=== PATIENT | female | born 1995 | race American Indian/Alaskan Native ===

== ENCOUNTER 2016-11-22 14:48 | Emergency (ER) | payer BC ==
[2016-11-22 15:50] VITALS: BP 114/62
[2016-11-22 16:45] LABS: Basophils % (Auto) 1.1 % (0.0-1.8); Eosinophils % (Auto) 1.8 % (0.0-4.3); Hematocrit 36.8 % (30.3-42.9); Hemoglobin 11.7 gm/dl (10.1-14.3); Mean Corpuscular HGB Conc 32 % (30-34); Mean Corpuscular Hemoglobin 29 pg (28-32); Mean Corpuscular Volume 89 fl (79-97); Platelet Count 293 K/mm3 (140-440); Red Blood Count 4.12 M/mm3 (3.65-5.03); Red Cell Distribution Width 15.5 % (13.2-15.2); White Blood Count 4.9 K/mm3 (4.5-11.0)
[2016-11-22 17:06] LABS: Alanine Aminotransferase 10 units/L (7-56); Albumin 4.2 g/dL (3.9-5); Albumin/Globulin Ratio 1.3 %; Alkaline Phosphatase 46 units/L (35-129); Anion Gap 15 mmol/L; Blood Urea Nitrogen 7 mg/dL (7-17); Carbon Dioxide 24 mmol/L (22-30); Chloride 107.6 mmol/L (98-107); Glucose 84 mg/dL (65-100); Lipase 18 units/L (13-60); Potassium 3.7 mmol/L (3.6-5.0); Sodium 143 mmol/L (137-145); Total Protein 7.4 g/dL (6.3-8.2)
--- NOTE | 2016-11-22 17:12 | Emergency Department Report ---
Chief Complaint: Abdominal Pain Stated Complaint: ABD PAIN, VOMITING Time Seen by Provider: 11/22/16 17:11 - HPI History of Present Illness: Patient here complaining of left lower abdominal pain that is 8 out of 10 and feels sharp. She said this has been going on for 3 days. Last menstrual period was 10/28/2016. Denies any urinary burning frequency or urgency. Denies any fever or chills. 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 Denies taking any [id number] medication for pain. Nothing make pain better or worse. Pain is constant per patient. Denies any nausea or vomiting. - ROS Review of Systems: All systems are negative unless stated in HPI above - Exam Vital Signs: Vital Signs 11/22/16 15:46 Temperature 98.2 F Pulse Rate 73 Respiratory 18 Rate Blood Pressure 114/62 O2 Sat by Pulse 100 Oximetry Physical Exam: Gen.: This is a 21-year-old female well-nourished well-developed in no acute distress and nontoxic in appearance Abdomen: Soft, tender to palpate to left pelvic area without any guarding or rebound tenderness. Normal bowel sounds in all quadrants and no peritoneal signs. Negative CVA tenderness bilaterally MSE screening note: Focused history and physical exam performed. Due to findings the following was ordered:See mdm ED Medical Decision Making - Lab Data Result diagrams: 11/22/16 16:30 11/22/16 16:30 - Medical Decision Making MDM: Patient screened by provider in triage area. Appropriate protocol initiated and patient to be seen in main ED by Provider ED Disposition for MSE Condition: Stable Instructions: Abdominal Pain (ED) Referrals: PRIMARY CARE [Primary Care Provider] - 3-5 Days
[2016-11-22 17:13] LABS: Bilirubin,Urine NEG (Negative); Blood,Urine NEG (Negative); Ketones,Urine NEG (Negative); Leukocyte Esterase,Urine NEG (Negative); Mucus,Urine 3+ /HPF; Nitrite,Urine NEG (Negative)
== END 2016-11-23 00:10 | disposition left against medical advice (07) ==
LOC: ED 14:48
DX: R10.32 Left lower quadrant pain (principal); Z53.21 Procedure and treatment not carried out due to patient leaving prior to being seen by health care provider
CPT/HCPCS: 36415; 80053; 81001; 81025; 83690; 85025